=== PATIENT | female | born 1980 | race Caucasian/White ===

== ENCOUNTER 2021-01-07 10:07 | Emergency (ER) | payer SELFPAY ==
[~2021-01-07] VITALS: Ht 172.7 cm; Wt 133.8 kg
--- NOTE | 2021-01-07 11:49 | ED Cough/URI ---
General Chief Complaint: COVID19 Suspect/Confirmed Stated Complaint: CONGESTION,MANRIQUEZ,FEVER, Nursing Triage Note: PT AMB TO RM 9 W REPORTS OF CONGESTION, MANRIQUEZ, SOA, AND CP X1 WEEK. PT A&OX4. Source: patient Exam Limitations: no limitations (DYAN STRONG APRN) Source: patient Exam Limitations: no limitations (ANGELES GODINEZ MD) History of Present Illness Date Seen by Provider: Jan 07, 2021 (DYAN STRONG APRN) Time Seen by Provider: 11:25 Initial Comments Patient is a 40-year-old female who presents to the emergency department today with a chief complaint of generalized malaise, congestion, runny nose, cough elizabeth t is nonproductive and chest "tightness". Patient states coughing makes her chest feel worse. She states her symptoms have been going on for about a week. She has been taking some istb-kfo-xxhqdeo cough and cold medicine including Robitussin-DM with a little bit of relief of symptoms. She denies any known fevers but has felt a little "hot". No problems with bowel or bladder. No severe headache. A little bit of a sore throat with cough. She is Covid vaccinated, in April with [employer] vaccine. No known sick contacts. All other review of systems reviewed and negative except as stated. Timing/Duration: week Severity/Quality: moderate, dry cough Prior Episodes/Possible Cause: frequent episodes Associated Symptoms: chest pain/soreness, cough, lightheadedness, nasal congestion, nasal drainage (ANGELES GODINEZ MD) Allergies and Home Medications Allergies Coded Allergies: No Known Drug Allergies (Unverified , 01/07/21) Patient Home Medication List Home Medication List Reviewed: Yes (ANGELES GODINEZ MD) Acetaminophen with Codeine (Acetaminop-Codeine 120-12 mg/5) 5 Ml Solution, 5 ML PO Q6H PRN for cough Prescribed by: ANGELES GODINEZ on 01/07/21 1341 Albuterol Sulfate (Proair Hfa) 1 Puff Puff, 2 PUFF IH Q6H PRN for shortness of breath Prescribed by: ANGELES GODINEZ on 01/07/21 1354 Review of Systems Review of Systems Constitutional: see HPI EENTM: nose congestion Respiratory: cough Cardiovascular: chest pain ("Tightness") Gastrointestinal: no symptoms reported Genitourinary: no symptoms reported Musculoskeletal: muscle cramps Skin: no symptoms reported Psychiatric/Neurological: No Symptoms Reported (ANGELES GODINEZ MD) All Other Systems Reviewed Negative Unless Noted: Yes (ANGELES GODINEZ MD) Past Ojknmyl-Pcatrh-Egtrge Hx Patient Social History Tobacco Use?: No Use of E-Cig and/or Vaping dev: No Substance use?: No Alcohol Use?: No (DYAN STRONG APRN) Immunizations Up To Date Influenza Vaccine Up-to-Date: Yes; Up-to-Date First/Initial COVID19 Vaccinat: APRIL 2020 COVID19 Vaccine [employer]: [employer] (DYAN STRONG APRN) Past Medical History Last Menstrual Period: Dec 28, 2020 (DYAN STRONG APRN) Physical Exam Vital Signs - First Documented 01/07/21 11:03 Temp 36.8 Pulse 88 Resp 20 B/P (MAP) 138/101 (113) Pulse Ox 100 O2 Delivery Room Air (ANGELES GODINEZ MD) Capillary Refill : Less Than 3 Seconds (DYAN STRONG APRN) Height: '" Weight: lbs. oz. kg; 44.00 BMI Method: (DYAN STRONG APRN) General Appearance: WD/WN, no apparent distress Eyes: Bilateral Eye Normal Inspection, Bilateral Eye PERRL, Bilateral Eye EOMI HEENT: PERRL/EOMI, normal ENT inspection, TMs normal, pharynx normal Neck: full range of motion, supple, normal inspection Respiratory: lungs clear, normal breath sounds, no respiratory distress, no accessory muscle use Cardiovascular: regular rate, rhythm Gastrointestinal: normal bowel sounds, non tender, soft Extremities: normal range of motion, non-tender, normal inspection, no pedal edema, normal capillary refill Neurologic/Psychiatric: alert, normal mood/affect, oriented x 3 Skin: normal color, warm/dry (ANGELES GODINEZ MD) Progress/Results/Core Measures Suspected Sepsis SIRS Temperature: Pulse: 88 Respiratory Rate: 20 Laboratory Tests 01/07/21 11:12: Blood Pressure 138 /101 Mean: 113 Laboratory Tests 01/07/21 11:12: (DYAN STRONG APRN) Results/Orders Lab Results Laboratory Tests Test 01/07/21 11:12 Range/Units White Blood Count 8.0 4.3-11.0 10^3/uL Red Blood Count 4.87 3.80-5.11 10^6/uL Hemoglobin 14.0 11.5-16.0 g/dL Hematocrit 42 35-52 % Mean Corpuscular Volume 86 80-99 fL Mean Corpuscular Hemoglobin 29 25-34 pg Mean Corpuscular Hemoglobin Concent 33 32-36 g/dL Red Cell Distribution Width 14.6 H 10.0-14.5 % Platelet Count 206 130-400 10^3/uL Mean Platelet Volume 10.9 9.0-12.2 fL Immature Granulocyte % (Auto) 0 % Neutrophils (%) (Auto) 75 42-75 % Lymphocytes (%) (Auto) 22 12-44 % Monocytes (%) (Auto) 3 0-12 % Eosinophils (%) (Auto) 0 0-10 % Basophils (%) (Auto) 0 0-10 % Neutrophils # (Auto) 6.0 1.8-7.8 10^3/uL Lymphocytes # (Auto) 1.7 1.0-4.0 10^3/uL Monocytes # (Auto) 0.2 0.0-1.0 10^3/uL Eosinophils # (Auto) 0.0 0.0-0.3 10^3/uL Basophils # (Auto) 0.0 0.0-0.1 10^3/uL Immature Granulocyte # (Auto) 0.0 0.0-0.1 10^3/uL D-Dimer 0.42 0.00-0.49 UG/ML Sodium Level 139 135-145 MMOL/L Potassium Level 3.4 L 3.6-5.0 MMOL/L Chloride Level 105 98-107 MMOL/L Carbon Dioxide Level 23 21-32 MMOL/L Anion Gap 11 5-14 MMOL/L Blood Urea Nitrogen 6 L 7-18 MG/DL Creatinine 0.72 0.60-1.30 MG/DL Estimat Glomerular Filtration Rate 89 BUN/Creatinine Ratio 8 Glucose Level 118 H 70-105 MG/DL Calcium Level 8.9 8.5-10.1 MG/DL Corrected Calcium 8.9 8.5-10.1 MG/DL Total Bilirubin 0.3 0.1-1.0 MG/DL Aspartate Amino Transf (AST/SGOT) 21 5-34 U/L Alanine Aminotransferase (ALT/SGPT) 34 0-55 U/L Alkaline Phosphatase 63 40-136 U/L Troponin I < 0.028 <0.028 NG/ML Total Protein 7.6 6.4-8.2 GM/DL Albumin 4.0 3.2-4.5 GM/DL Influenza Type A (RT-PCR) Not Detected Not Detecte Influenza Type B (RT-PCR) Not Detected Not Detecte SARS-CoV-2 RNA (RT-PCR) Detected H Not Detecte (ANGELES GODINEZ MD) Vital Signs/I&O 01/07/21 01/07/21 11:03 13:46 Temp 36.8 Pulse 88 89 Resp 20 22 B/P (MAP) 138/101 (113) 126/84 Pulse Ox 100 98 O2 Delivery Room Air Room Air (ANGELES GODINEZ MD) Vital Signs/I&O Capillary Refill : Less Than 3 Seconds (DYAN STRONG APRN) Blood Pressure Mean: 113 Progress Note : Time: 13:41 Progress Note Discussed with patient monoclonal antibody infusion. Today would be day 9 or 10. We discussed the benefits of the infusion potentially but since the patient clinically looks so good, oxygen saturations are 100%, she has no respiratory distress and a normal-appearing chest x-ray with only a little bit of basilar atelectasis versus scant infiltrate she would like to go home. She is formerly vaccinated so she should have some antibody fight. I advised her to get a pulse oximeter and monitor her oxygen. We will give her some Tylenol with codeine for her cough. Fluids and ibuprofen for body aches and pain. Return precautions given. Patient is quite comfortable with this plan of care. All questions are sought and answered. (ANGELES GODINEZ MD) ECG Initial ECG Impression Date: Jan 07, 2021 Initial ECG Impression Time: 11:38 Initial ECG Rate: 91 Initial ECG Rhythm: Normal Sinus Initial ECG Intervals: Normal Initial ECG Impression: Normal (ANGELES GODINEZ MD) Diagnostic Imaging Diagonstic Imaging: Xray Plain Films/CT/US/NM/MRI: chest Comments [facility] [place], [place] NAME: ESTEBAN BHANDRAI [facility] REC#: [id number] PT STATUS: REG ER : 1980 PHYSICIAN: DYAN STRONG APRN ADMIT DATE: 01/07/21/ER Signed Date of Exam:01/07/21 CHEST 1 VIEW, AP/PA ONLY EXAMINATION: Chest, one view. HISTORY: Cough. COMPARISON: None available. FINDINGS: Heart size and pulmonary vasculature are normal. There are low lung volumes with mild bibasilar interstitial opacities. No pleural effusion or pneumothorax. Degenerative changes of the thoracic spine. Osseous structures are otherwise intact. IMPRESSION: 1. Low lung volumes with mild bibasilar opacities which could represent atelectasis, pulmonary edema, or atypical infection. Dictated by: Dictated on workstation # [id number] Dict: 01/07/21 1217 Trans: 01/07/21 1233 [id number] Interpreted by: LATONYA MCKEON DO Electronically signed by: LATONYA MCKEON DO 01/07/21 1233 (ANGELES GODINEZ MD) Departure Impression Primary Impression: COVID-19 Disposition: 01 HOME, SELF-CARE Condition: Stable Departure-Patient Inst. Decision time for Depature: 13:33 (ANGELES GODINEZ MD) Referrals: NO,LOCAL PHYSICIAN (PCP/Family) Primary Care Physician Patient Instructions: COVID-19 (DC) Add. Discharge Instructions: Drink plenty of fluids to stay well-hydrated. Use tioq-uoy-wmwisyw Mucinex to thin your secretions to help you be able to c ough them up a little bit better. Tylenol with codeine syrup every 6 hours for cough. Do not take extra Tylenol while using this cough syrup. A good multivitamin daily will be helpful. Ibuprofen as needed for body aches and headache. You can take 3 tablets which is 600 mg every 6-8 hours with food. [facility] or [employer], if your oxygen levels dropped below 90 you need to come back to the emergency department. Return for any other new, concerning or emergent complaints. Scripts Albuterol Sulfate (PROAIR HFA) 1 Puff Puff 2 PUFF IH Q6H PRN for shortness of breath, #1 EA 1 PUFF = 90 MCG Prov: ANGELES GODINEZ MD 01/07/21 Acetaminophen with Codeine (Acetaminop-Codeine 120-12 mg/5) 5 Ml Solution 5 ML PO Q6H PRN for cough, #100 EA 1-2 teaspoons every 6 hours as needed for cough Prov: ANGELES GODINEZ MD 01/07/21 DYAN STRONG APRN Jan 07, 2021 11:48 ANGELES GODINEZ MD Jan 07, 2021 13:39
[2021-01-07 11:50] LABS: BASOPHILS % (AUTO) 0 % (0-10); EOSINOPHILS % (AUTO) 0 % (0-10); HEMATOCRIT 42 % (35-52); LYMPHOCYTES # (AUTO) 1.7 10^3/uL (1.0-4.0); LYMPHOCYTES % (AUTO) 22 % (12-44); MEAN CORPUSCULAR HEMOGLOBIN 29 pg (25-34); MEAN CORPUSCULAR HGB CONC 33 g/dL (32-36); MEAN CORPUSCULAR VOLUME 86 fL (80-99); MEAN PLATELET VOLUME 10.9 fL (9.0-12.2); MONOCYTES # (AUTO) 0.2 10^3/uL (0.0-1.0); MONOCYTES % (AUTO) 3 % (0-12); NEUTROPHILS % (AUTO) 75 % (42-75); PLATELET COUNT 206 10^3/uL (130-400)
[2021-01-07 12:02] LABS: CHLORIDE 105 MMOL/L (98-107); POTASSIUM 3.4 MMOL/L (3.6-5.0); SODIUM 139 MMOL/L (135-145)
[2021-01-07 12:03] LABS: CALCIUM 8.9 MG/DL (8.5-10.1)
[2021-01-07 12:04] LABS: GLUCOSE 118 MG/DL (70-105)
[2021-01-07 12:05] LABS: TOTAL PROTEIN 7.6 GM/DL (6.4-8.2)
[2021-01-07 12:06] LABS: BILIRUBIN,TOTAL 0.3 MG/DL (0.1-1.0); CARBON DIOXIDE 23 MMOL/L (21-32)
[2021-01-07 12:08] LABS: ALKALINE PHOSPHATASE 63 U/L (40-136); CREATININE SERUM 0.72 MG/DL (0.60-1.30); GFR ESTIMATED 89
[2021-01-07 12:09] LABS: BUN/CREATININE RATIO 8
[2021-01-07 12:11] LABS: ALANINE AMINOTRANSFERASE 34 U/L (0-55)
--- NOTE | 2021-01-07 12:20 | Diagnostic Imaging Report ---
EXAMINATION: Chest, one view. HISTORY: Cough. COMPARISON: None available. FINDINGS: Heart size and pulmonary vasculature are normal. There are low lung volumes with mild bibasilar interstitial opacities. No pleural effusion or pneumothorax. Degenerative changes of the thoracic spine. Osseous structures are otherwise intact. IMPRESSION: 1. Low lung volumes with mild bibasilar opacities which could represent atelectasis, pulmonary edema, or atypical infection. Dictated by: Dictated on workstation # [id number]
[2021-01-07] MEDS ORDERED: ACET5ELI PO (13:41)
[2021-01-07 13:46] VITALS: BP 126/84
[2021-01-07] MEDS ORDERED: RT-ALBUINH IH (13:54)
== END 2021-01-07 13:46 | disposition home or self-care (01) ==
LOC: ER 10:09
DX: U07.1 COVID-19 (principal)
CPT/HCPCS: 36415; 71045; 80053; 84484; 85025; 85379; 87636; 93005